=== PATIENT | female | born 1970 | race Caucasian/White ===

== ENCOUNTER 2016-12-19 13:59 | Inpatient (IN) | payer BC ==
[~2016-12-19] VITALS: Ht 172.7 cm; Wt 63.5 kg
[~2016-12-19 13:59] MED LIST: NKM
[2016-12-19 14:30] VITALS: BP 118/69
[2016-12-19] MEDS ORDERED: Tubing IV Cassette IV ONE (14:41)
[2016-12-19 14:57] LABS: BASOPHILS % (AUTO) 0.5 % (0.0-2.0); EOSINOPHILS % (AUTO) 1.3 % (0.0-3.0); LYMPHOCYTES % (AUTO) 21.1 % (20.0-45.0); MEAN CORPUSCULAR HEMOGLOBIN 30.5 PG (27.0-31.0); MEAN CORPUSCULAR HGB CONC 33.1 G/DL (32.0-36.0); MEAN CORPUSCULAR VOLUME 92 FL (80-99); MEAN PLATELET VOLUME 5.9 FL (6.5-10.1); MONOCYTES % (AUTO) 9.8 % (1.0-10.0); NEUTROPHILS % (AUTO) 67.3 % (45.0-75.0); PLATELET COUNT 313 K/UL (150-450); RED BLOOD COUNT 3.78 M/UL (4.20-5.40); RED CELL DISTRIBUTION WIDTH 12.2 % (11.6-14.8); WHITE BLOOD COUNT 8.5 K/UL (4.8-10.8)
--- NOTE | 2016-12-19 15:02 | Emergency Room Report ---
History of Present Illness General Chief Complaint: Pain Source: Patient Present Illness HPI The patient was sent in by her private physician to rule out small bowel obstruction. She's had a week of difficulty in moving her bowels. She has a continent ileostomy. She has to strain to make any stool come out. She's been eating less recently. She vomited some coffee once in feels nauseated. She feels full in her abdomen. She complains about pain which is intermittent and crampy. 3/10 at the moment. She states does not radiate. She denies hematuria or cloudy urine. She states the urine is clear. She also has a urinary ileostomy There is no melena or blood when she does pass stool. No fevers No chest pain, dyspnea, headache, dizziness, rashes, extremity pain, depression. The patient has T10 paraplegia after there was a misdiagnosis of the AVM at T10. She underwent radiation and chemotherapy for astrocytoma. Allergies: Coded Allergies: Cane Sugar (Verified Allergy, Severe, Hives, 12/19/16) METRONIDAZOLE (Verified Allergy, Unknown, 11/29/15) Brown Sugar (Verified Adverse Reaction, Severe, Hives, 12/19/16) ALL TYPES OF SUGAR Uncoded Allergies: all sugars (Adverse Reaction, Severe, Hives, 12/19/16) Patient History Past Medical History: see triage record Social History: Denies: smoking Social History Narrative with brother Now: No Reviewed Nursing Documentation: PMH: Agreed, PSxH: Agreed Nursing Documentation-PMH Hx Cardiac Problems: No Hx Cancer: No Hx Neurological Problems: No Hx Paralysis: Yes - PARAPLEGIC Review of Systems All Other Systems: negative except mentioned in HPI Physical Exam Vital Signs Date Time Temp Pulse Resp B/P Pulse Ox O2 Delivery O2 Flow Rate FiO2 12/19/16 14:10 98.8 81 18 118/69 99 Room Air Sp02 EP Interpretation: reviewed, normal General Appearance: well appearing, no apparent distress, GCS 15 Head: normocephalic Eyes: bilateral eye PERRL, bilateral eye normal inspection ENT: moist mucus membranes Neck: supple Respiratory: lungs clear, normal breath sounds Cardiovascular #1: regular rate, rhythm Cardiovascular #2: 2+ radial (R) Gastrointestinal: normal bowel sounds, no guarding, no rebound, other - urine ileostomy and continent ileostomy site Musculoskeletal: back normal Neurologic: alert, oriented x3, speech normal, motor weakness - T10 , sensory deficit - T 10 Psychiatric: mood/affect normal Skin: normal inspection, warm/dry Medical Decision Making Diagnostic Impression: 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 Pouch having difficulty passing stool. Differential includes food blockage, small bowel obstruction, adhesions, diverticulitis amongst others. We to evaluate her with labs and CT abdomen. She declines pain medication at this time. I am ordering Zofran. Labs unremarkable. CT with stool buildup (with gas) in ileostomy pouch. No evidence of obstruction. Patient agreed to have pain medication. Dr. Mohan here examines patient. Admit med. Laboratory Tests Test 12/19/16 14:30 White Blood Count 8.5 K/UL (4.8-10.8) Red Blood Count 3.78 M/UL (4.20-5.40) L Hemoglobin 11.5 G/DL (12.0-16.0) L Hematocrit 34.9 % (37.0-47.0) L Mean Corpuscular Volume 92 FL (80-99) Mean Corpuscular Hemoglobin 30.5 PG (27.0-31.0) Mean Corpuscular Hemoglobin Concent 33.1 G/DL (32.0-36.0) Red Cell Distribution Width 12.2 % (11.6-14.8) Platelet Count 313 K/UL (150-450) Mean Platelet Volume 5.9 FL (6.5-10.1) L Neutrophils (%) (Auto) 67.3 % (45.0-75.0) Lymphocytes (%) (Auto) 21.1 % (20.0-45.0) Monocytes (%) (Auto) 9.8 % (1.0-10.0) Eosinophils (%) (Auto) 1.3 % (0.0-3.0) Basophils (%) (Auto) 0.5 % (0.0-2.0) Prothrombin Time 9.4 SEC (9.30-11.50) Prothrombin Time INR 0.9 (0.9-1.1) PTT 38 SEC (23-33) H Sodium Level 137 mEQ/L (135-145) Potassium Level 3.5 mEQ/L (3.4-4.9) Chloride Level 97 mEQ/L (98-107) L Carbon Dioxide Level 21 mEQ/L (20-30) Anion Gap 19 (5-15) H Blood Urea Nitrogen 9 mg/dL (7-23) Creatinine 0.5 mg/dL (0.5-0.9) Estimate Glomerular Filtration Rate > 60 mL/min (>60) Glucose Level 102 mg/dL (74-106) Calcium Level 8.7 mg/dL (8.6-10.2) Total Bilirubin < 0.2 mg/dL (0.0-1.2) Aspartate Amino Transferase (AST) 17 U/L (5-40) Alanine Aminotransferase (ALT) 13 U/L (3-33) Alkaline Phosphatase 67 U/L (35-104) Total Protein 6.9 g/dL (6.6-8.7) Albumin 3.7 g/dL (3.5-5.2) Globulin 3.2 g/dL Albumin/Globulin Ratio 1.1 (1.0-2.7) Lipase 19 U/L (< 60) Chest X-Ray Diagnostic Results Chest X-Ray Ordered: No CT/MRI/US Diagnostic Results CT/MRI/US Diagnostic Results : Imaging Test Ordered: Noncontrast CT abdomen pelvis Impression Increase in distention fecal content of ileal pouch and right lower quadrant and right curtis-pelvis. Trans-ileostomy catheter longer present. At least partial obstruction not excludable. Fecalization of small bowel contents in the left lower quadrant suggest stasis. No other evidence of acute abdominal pelvic disease was limited study without contrast. Last Vital Signs Date Time Temp Pulse Resp B/P Pulse Ox O2 Delivery O2 Flow Rate FiO2 12/22/16 08:04 97.1 78 20 97/63 98 Room Air Status: improved Disposition: ADMITTED INPATIENT Condition: Serious Referrals: TAISHA MOHAN (PCP) Ketan Fernandez M.D. Dec 19, 2016 15:02
[2016-12-19 15:06] LABS: INR 0.9 (0.9-1.1); PROTHROMBIN TIME 9.4 SEC (9.30-11.50)
[2016-12-19 15:13] LABS: ALANINE AMINOTRANSFERASE 13 U/L (3-33); ALBUMIN/GLOBULIN RATIO 1.1 (1.0-2.7); ANION GAP 19 (5-15); ASPARTATE AMINO TRANSFERASE 17 U/L (5-40); CALCIUM 8.7 mg/dL (8.6-10.2); CARBON DIOXIDE 21 mEQ/L (20-30); CHLORIDE 97 mEQ/L (98-107); CREATININE 0.5 mg/dL (0.5-0.9); GLOMERULAR FILTRATION RATE > 60 mL/min (>60); HEMOLYSIS 2; LIPASE 19 U/L (< 60); POTASSIUM 3.5 mEQ/L (3.4-4.9); SODIUM 137 mEQ/L (135-145); TOTAL PROTEIN 6.9 g/dL (6.6-8.7)
[2016-12-19] MEDS ORDERED: CIPRO500 MG PO (15:20)
[2016-12-19] MEDS ORDERED: Ketorolac 30mg Inj IV ONE (15:30)
[2016-12-19 16:00] VITALS: BP 121/81
[2016-12-19 16:20] LABS: APPEARANCE,URINE CLEAR; KETONES,URINE 4+ (NEGATIVE); LEUKOCYTE ESTERASE ,URINE NEGATIVE (NEGATIVE); NITRITE,URINE NEGATIVE (NEGATIVE); PH,URINE 5 (4.5-8.0); PROTEIN,URINE NEGATIVE (NEGATIVE); UROBILINOGEN,URINE NORMAL MG/DL (0.0-1.0)
[2016-12-19] MEDS ORDERED: LORazepam 1mg tab SL PRN ×2 (17:30)
[2016-12-19] MEDS ORDERED: Acetaminophen 650mg/20.3ml ORAL PRN (17:30)
--- NOTE | 2016-12-19 17:59 | General Progress Note ---
Progress Note Progress Note H&P dictated. 1 year s/p colectomy with creation of Quigley Continent Ileostomy for neurogenic colon. Doing well with her pouch and dramatically improved quality of life compared to pre-op. On December 15 she ate a large meal with beef and zucchini and since then has c/o bloating, cramping, very little pouch output but no difficulty with intubations Abdomen markedly distended and tympanitic but soft and non-tender. Urostomy LLQ , BCIR stomj RLQ All labs are wnl CT: marked amount of "fecal" material in pouch and proximal bowel Imp. Intestinal obstruction due to impacted material in continent ileostomy pouch and proximal intestine Plan: 1) I inserted a 34French Caroline catheter and with much irrigation and aspiration obtained 50cc thick effluent - will place to continuous gravity drainage 2) Vitamin C 1000mg PO STAT 3) Mineral Oil 60cc po STAT 4) Frequent irrigation and aspiration of pouch catheter 5) npo except TAISHA Rosenbaum Dec 19, 2016 17:59
[2016-12-19] MEDS ORDERED: Mineral Oil 30ml ud ORAL ONE (18:50)
[2016-12-19 18:58] VITALS: BP 103/66
[2016-12-19] MEDS: Ascorbic Acid 500mg tab ORAL PRN (18:59)
[2016-12-19 20:00] VITALS: BP 95/55
[2016-12-19] MEDS: D5 1/4NS w/KCl 20mEq 1,000 ML IV SCH (21:03)
[2016-12-20] VITALS: BP 101/56
[2016-12-20] MEDS: Ascorbic Acid 500mg tab ORAL PRN ×3 (01:23→08:52)
[2016-12-20 04:00] VITALS: BP 94/60
[2016-12-20] MEDS: D5 1/4NS w/KCl 20mEq 1,000 ML IV SCH ×2 (05:18→15:45)
[2016-12-20 08:00] VITALS: BP 114/66
--- NOTE | 2016-12-20 08:56 | General Progress Note ---
Progress Note Progress Note AVSS c/o abdominal cramping and bloating. Despite Vitamin C, mineral oil, frequent irrigation and suction vs. gravity drainage and 34 Yoruba Caroline, still very little output from Continent Ileostomy Abdomen moderate distention, soft Urine output satisfactory (self-caths her urostomy) Imp. Persistent small bowel obstruction due to food blockage/impaction of Continent Ileostomy Plan: STAT gastrograffin continent ileostomy pouchogram TAISHA MATA Dec 20, 2016 08:56
[2016-12-20] MEDS ORDERED: NS Irrig 1000ml ONE (10:28)
--- NOTE | 2016-12-20 10:45 | History and Physical Report ---
DATE OF ADMISSION: 12/19/2016 HISTORY OF PRESENT ILLNESS: The patient is a 46-year-old female in overall good health who is a T10 paraplegic and is status post total colectomy with continent ileostomy. She has been doing well since her surgery 1 year ago for neurogenic colon. She has been intubating her continent ileostomy pouch several times a day and had dramatic improvement in her quality of life compared to preoperatively. On 12/15/2016 she ate [place] food with vegetables and since that time, has developed progressive distention and cramping and inability to evacuate an adequate amount of material when catheterizing her continent ileostomy. She was advised to present to the emergency room. She had no fevers. Vital signs were stable. She is in mild distress. A noncontrast CT scan of the abdomen and pelvis revealed a large amount of fecal material in the pouch and afferent bowel, but no other pathology within the limitations of the study. The patient was admitted for inpatient care to be NPO. PAST SURGICAL HISTORY: Please see complete list at the end of this dictation. MEDICATIONS: Doxycycline for rosacea. ALLERGIES: Flagyl. PHYSICAL EXAMINATION: GENERAL: The patient is well developed and well well-nourished, 5 foot 8 inches, approximately 130 pounds, in mild distress from abdominal discomfort. HEENT: Within normal limits. LUNGS: Clear. HEART: Regular rhythm. BREASTS: Without masses. ABDOMEN: Significantly distended and tympanitic, but soft and nontender. The midline incision is without evidence of hernia. The stoma of her Quigley continent ileostomy is low in the right lower quadrant and well formed. PELVIC: Status post total abdominal hysterectomy. RECTAL: Very short rectal stump. EXTREMITIES: The patient is paraplegic. There is no edema. Pulses are 2+ femoral to pedal bilaterally. NEUROLOGIC: T10 paraplegia. IMPRESSION: 1. Bowel obstruction due to food blockage involving Quigley continent ileostomy 2. 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 3. Neurogenic colon and bladder due to T10 paraplegia. 4. Status post multiple abdominal operations. 4.1. Urostomy with conduit of small bowel to dome of bladder with stoma in the left lower quadrant in 1993. 4.2. End-sigmoid colostomy with stoma in the right lower quadrant in 1997 4.3. Flap repair of left hip in 2005. 4.4. Total abdominal hysterectomy and left oophorectomy with resection of rectosigmoid colon leaving a short rectal stump and preserving the end colostomy in 2006. 4.5. Immediately following the hysterectomy procedure, return to operating room for disruption of urostomy conduit with abdominal washout and repair of urostomy in 2006. 4.6. Total abdominal colectomy with creation of Quigley continent ileostomy on 11/30/2015. DISCUSSION: I inserted a 34-H[place] Ángel silicone catheter into her pouch without difficulty, but despite irrigation and aspiration, was able to obtain only a small amount of thick effluent. There are particles that tend to obstruct the holes in the catheter. The patient will be admitted and made NPO with intravenous hydration. There will be continuous drainage of her Quigley pouch with constant frequent irrigating and aspirating and as necessary the catheter will be placed to suction instead of gravity drainage. She will receive vitamin C 1000 mg by mouth and mineral oil 60mL by mouth. If the obstruction does not clear readily, we will do a Gastrografin pouchogram x-ray in early a.m. Philip Mohan M.D. DR: FAITH JOB#: [id number] CC: FRENCH
--- NOTE | 2016-12-20 11:01 | Diagnostic Imaging Report ---
Indications: Abdominal pain Technique: Continuous helical CT imaging of the abdomen and pelvis was performed with automatic exposure control on a Siemens sensation [address] scanner. Axial, coronal, sagittal images reconstructed at 3 mm slice thickness. No oral or IV contrast was administered per requesting physician's order, despite no contraindications listed. CTDI volume(s): 15 mGy Total DLP: 750 mGy-cm Findings: Comparison: Contrast-enhanced CT scans of the abdomen and pelvis 12/14/15, 12/08/15 Lack of oral and IV contrast limits evaluation. Again noted are complete resection of the colon with short distal rectal stump, ileostomy pouch and right lower quadrant. Conscious currently more distended than on previous exam, fluid and fecal filled with air-fluid levels. Previous indwelling catheter placed via the ileostomy no longer present. Several loops of small bowel in left lower quadrant are moderately distended and fecal filled. Remainder of small bowel nondilated. Stomach nondilated. No obvious mural thickening, associated extraluminal gas or fluid collections. Absence of uterus, nonvisualization of ovaries, apparent mural thickening of urinary bladder, perianal and left ischial increased soft tissue attenuation unchanged. Remainder of unenhanced abdominopelvic anatomy demonstrates no other obvious acute abnormality. Lung bases and adjacent pleural surfaces clear. No focal skeletal abnormality identified. IMPRESSION: Increase in distention and fecal content of ileal pouch in right lower quadrant/right hemipelvis. Trans-ileostomy catheter no longer present. At least partial obstruction not excludable. Fecalization of small bowel contents in left lower quadrant suggesting stasis No other evidence of acute abdominopelvic disease, with limitation as described. Subtle but potentially significant abnormalities may be missed. Repeat CT scan with full oral and IV contrast preparation recommended for more complete evaluation, as clinically indicated Stable chronic changes as described
[2016-12-20 12:00] VITALS: BP 103/62
--- NOTE | 2016-12-20 13:50 | Diagnostic Imaging Report ---
Indication: Constipation, lack of drainage from continent ileostomy Technique: Water-soluble contrast injected into continent ileostomy via previously placed Younger catheter under direct fluoroscopic visualization. Spot films were obtained. Total fluoroscopy time 5.9 minutes. Total dose area product 428 dGycm2 Comparison: Reference made to CT scan of 12/19/2016. Reference also made to abdomen radiograph 12/20/16 Findings: Contrast fills continent ileostomy, which appears unremarkable. Contrast refluxes readily into the patient small bowel, which is diffusely dilated over long segment, and contains innumerable small filling defects, consistent with small bowel feces demonstrated on recent CT. Motility is nonetheless demonstrated, and on later films there is demonstrated drainage and decrease in extent of the filling defects. Impression: Dilated distal small bowel, corresponding to findings seen on recent CT scan. However, reflux into the small bowel from a continent ileostomy indicates lack of obstruction as is evidence of drainage into the continent ileostomy from the distal small bowel on the delayed images. Filling defects are consistent with recent CT Procedure and findings discussed by phone previously with Dr. Mohan
[2016-12-20 16:00] VITALS: BP 110/69
[2016-12-20 20:00] VITALS: BP 115/72
[2016-12-21] MEDS: D5 1/4NS w/KCl 20mEq 1,000 ML IV SCH ×2 (03:00→12:09)
[2016-12-21 04:00] VITALS: BP 106/62
[2016-12-21] MEDS: Ascorbic Acid 500mg tab ORAL PRN (06:19)
[2016-12-21 08:00] VITALS: BP 108/70
--- NOTE | 2016-12-21 08:48 | General Progress Note ---
Progress Note Progress Note AVSS Feeling better. Had 700cc ileostomy output overnight Abdomen less distended, still tympanitic Quigley Continent Ileostomy pouch draining well now via indwelling 34 Fr Caroline catheter Imp. Functional (food blockage) small bowel obstruction - improving Plan: Clear liquid diet Maintain continuous decompression/drainage of Quigley Pouch Will d/c IV fluids if able to tolerate po intake today TAISHA MATA Dec 21, 2016 08:48
[2016-12-21 12:00] VITALS: BP_SYST 100; BP_SYST 145; BP_DIAS 63; BP_DIAS 76
[2016-12-21 16:00] VITALS: BP 97/68
[2016-12-21] MEDS ORDERED: D5 1/4NS w/KCl 20mEq 1,000 ML IV SCH (20:00)
[2016-12-21 20:11] VITALS: BP 98/57
[2016-12-22 08:04] VITALS: BP 97/63
--- NOTE | 2016-12-22 10:01 | General Progress Note ---
Progress Note Progress Note Much improved - good output (1000cc) from Quigley Pouch catheter. Tolerating low residue diet Abdomen not distended or tympanitic Imp. Obstruction resolved Plan: Discharge Instructions/follow-up discussed with patient TAISHA MATA Dec 22, 2016 10:01
--- NOTE | 2017-01-01 11:04 | Discharge Summary ---
Discharge Summary Hospital Course Date of Admission Dec 19, 2016 at 15:05 Date of Discharge Dec 22, 2016 at 12:00 Admitting Diagnosis SMALL BOWEL OBSTRUCTION Reason for Hospitalization: blocked continent ileostomy HPI 46-year-old female in overall good health who is a T10 paraplegic, status post total colectomy with continent ileostomy. She has been doing well since her surgery 1 year ago for neurogenic colon. She has been intubating her continent ileostomy pouch several times a day and had dramatic improvement in her quality of life compared to preoperatively. On 12/15/2016 she ate Indian food with vegetables and since that time, has developed progressive distention and cramping and inability to evacuate an adequate amount of material when catheterizing her continent ileostomy. She was advised to present to the emergency room. She had no fevers. Vital signs were stable. She was in mild distress. A noncontrast CT scan of the abdomen and pelvis revealed a large amount of fecal material in the pouch and afferent bowel, but no other pathology within the limitations of the study. The patient was admitted for inpatient care to be NPO. Procedures none Hospital Course 34-Lux[place]ish Ángel silicone catheter was inserted by surgeon into her pouch without difficulty, but despite irrigation and aspiration, was able to obtain only a small amount of thick effluent. The patient was admitted IVF NPO except meds Continuous drainage of Quigley pouch with constant frequent irrigation and aspiration vitamin C 1000 mg by mouth and mineral oil 60mL by mouth. the obstruction did not clear readily over the night Urine output satisfactory (self-caths her urostomy) Gastrografin pouchogram x-ray subsequently was done stat on 12/20 it revealed findings consistent with dilated distal small bowels, corresponding to findings seen on recent CT scan. However, reflux into the small bowel from a continent ileostomy indicated lack of obstruction as was evidence of drainage into the continent ileostomy from the distal small bowel on the delayed images. Filling defects were consistent with recent CT next day 12/21 -feeling better. Patient had 700cc ileostomy output overnight Abdomen less distended, but still tympanitic Quigley Continent Ileostomy pouch was draining well via indwelling 34 Fr Caroline catheter Functional (food blockage) small bowel obstruction - improving Started on clear liquid diet Continuous decompression/drainage of Quigley Pouch was maintained 12/22 further clinical improvement Off IV fluids since was able to tolerate po intake Good output (1000cc) from Quigley Pouch catheter. Tolerated low residue diet Abdomen not distended or tympanitic Obstruction resolved patient was stable for discharge Instructions/follow-up discussed with patient FINAL DIAGNOSIS 1. Bowel obstruction due to food blockage involving Quigley continent ileostomy 2. 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 3. Neurogenic colon and bladder due to T10 paraplegia. 4. Status post multiple abdominal operations. 4.1. Urostomy with conduit of small bowel to dome of bladder with stoma in the left lower quadrant in 1993. 4.2. End-sigmoid colostomy with stoma in the right lower quadrant in 1997 4.3. Flap repair of left hip in 2005. 4.4. Total abdominal hysterectomy and left oophorectomy with resection of rectosigmoid colon leaving a short rectal stump and preserving the end colostomy in 2006. 4.5. Immediately following the hysterectomy procedure, return to operating room for disruption of urostomy conduit with abdominal washout and repair of urostomy in 2006. 4.6. Total abdominal colectomy with creation of Quigley continent ileostomy on 11/30/2015. Discharge Condition Upon Discharge: stable Discharge Disposition Patient was discharged to Home (01) Discharge Diagnoses: Rian ([place])Isabell NP Jan 01, 2017 11:04
== END 2016-12-22 12:00 | disposition home or self-care (01) | DRG 394 ==
LOC: EMR 14:32 → 3E 15:05 → EDBEDREQ 15:33
PROC: 3E1H78Z Irrigation of Lower GI using Irrigating Substance, Via Natural or Artificial Opening (ICD-10-PCS; principal; 2016-12-20)
DX: K94.13 Enterostomy malfunction (principal); K56.69 Other intestinal obstruction; G95.89 Other specified diseases of spinal cord; G82.20 Paraplegia, unspecified; K59.2 Neurogenic bowel, not elsewhere classified; Y83.3 Surgical operation with formation of external stoma as the cause of abnormal reaction of the patient, or of later complication, without mention of misadventure at the time of the procedure; Z88.8 Allergy status to other drugs, medicaments and biological substances
CPT/HCPCS: 36415; 74176; 74250; 80053; 81003; 83690; 85025; 85610; 85730; 86850; 86900; 86901; J2405